=== PATIENT | female | born 1985 | race Two or more races ===

== ENCOUNTER 2020-06-06 16:49 | Emergency (ER) | payer OTHER ==
--- NOTE | 2020-06-06 18:02 | ER Document Report ---
ED ENT - General Chief Complaint: Sore Throat Stated Complaint: SORE THROAT/CHILLS/HEADACHE/NAUSEA Time Seen by Provider: 06/06/20 17:45 Mode of Arrival: Ambulatory Information source: Patient Notes: 35-year-old female past medical history significant for autoimmune disorder and [facility]KH presents to the emergency room complaining of chills, body aches, sore throat and nasal congestion for the past 3 days. States she has not been running a fever as she has her temperature checked daily at work. States she has had loss of taste and smell for the past 2 days. She has had no recent travel no no COVID-19 exposure. 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 States she has been taking Tylenol without relief. No ill contacts. No one else at home is ill. Eating and drinking normally. Denies any chance of . Requesting COVID-19 testing TRAVEL OUTSIDE OF THE [place] IN LAST 30 DAYS: No - Related Data Home Medications: Mycophenolate Mofetil Past Medical History - General Information source: Patient - Social History Smoking Status: Current Every Day Smoker Frequency of alcohol use: Occasional Drug Abuse: None Family History: Reviewed & Not Pertinent Review of Systems - Review of Systems Constitutional: Chills EENT: Nose congestion, Throat pain Cardiovascular: No symptoms reported Respiratory: No symptoms reported Gastrointestinal: No symptoms reported Musculoskeletal: Muscle pain Skin: No symptoms reported Neurological/Psychological: No symptoms reported -: Yes All other systems reviewed and negative Physical Exam - Vital signs Vitals: Pulse Resp BP Pulse Ox 71 14 123/78 99 06/06/20 18:10 06/06/20 18:10 06/06/20 18:10 06/06/20 18:10 - General General appearance: Appears well, Alert In distress: Mild - HEENT Head: Normocephalic, Atraumatic Cornea: Normal Extraocular movements intact: Yes Ears: Normal External canal: Normal Tympanic membrane: Injected, Retracted, Other - Lateral tympanic membranes are dull and retracted with clear fluid noted. Sinus: Normal. No: Frontal, Mastoid, Maxillary, Swelling, Tenderness Nasal: Other - No nasal discharge noted. Mucous membranes: Normal Pharynx: Normal - Respiratory Respiratory status: No respiratory distress Chest status: Nontender Breath sounds: Normal Chest palpation: Normal - Cardiovascular Rhythm: Regular Heart sounds: Normal auscultation Murmur: No - Back Back: Normal, Nontender. No: CVA tenderness - Neurological Neuro grossly intact: Yes Cognition: Normal Orientation: AAOx4 Haskell Coma Scale Eye Opening: Spontaneous Le Coma Scale Verbal: Oriented Haskell Coma Scale Motor: Obeys Commands Haskell Coma Scale Total: 15 Speech: Normal Motor strength normal: LUE, RUE, LLE, RLE Sensory: Normal - Skin Skin Temperature: Warm Skin Moisture: Dry Skin Color: Normal Course - Re-evaluation Re-evalutation: 06/06/20 18:18 Patient is afebrile, nontoxic-appearing, reviewed diagnosis of URI with patient. Discussed loss of taste and smell to be secondary to her sinus congestion however she has risk factors for COVID-19 the past we will swab her without her test results could take 6 to 8 days to come back. Patient was counseled on the importance of self quarantining until she gets her test results back. Can use [id number] DayQuil, NyQuil, Sudafed. Patient was given strict return to the emergency room guidelines. Return for any new or worsening symptoms. All questions were answered. Patient verbalized understanding and agrees with plan of care. - Vital Signs Vital signs: Temp Pulse Resp BP Pulse Ox 98.5 F 71 14 123/78 99 06/06/20 18:28 06/06/20 18:10 06/06/20 18:10 06/06/20 18:10 06/06/20 18:10 Discharge - Discharge Clinical Impression: Viral URI, Person under investigation for COVID-19 Condition: Stable Disposition: HOME, SELF-CARE Instructions: Upper Respiratory Illness ([facility]), Viral Syndrome ([facility]) Additional Instructions: Your symptoms are most likely due to a viral infection it should resolve over the next 7-14 days. You should take [id number] guanfacine per bottle instructions to help thin the mucus. For nasal congestion: I would recommend that you get byio-fge-slpoeiz oxymetazoline also known is afrin. Use only per bottle instructions and be sure to never use this for more than 3 days if you can develop severe rebound congestion. You may also use tylenol or ibuprofen as needed for aches and thorat discomfort. Please be sure to drink plenty of fluids and get rest. Return to the emergency department he began having difficulty breathing, chest pain, persistent vomiting, or any other symptoms that are co ncerning to you. You have been tested for COVID-19, is mandatory that you self quarantine for the next 14 days or until you get your test results back. Return to the emergency room for any new or worsening symptoms.
[2020-06-06 19:19] VITALS: BP 120/67
== END 2020-06-06 19:20 | disposition home or self-care (01) ==
LOC: ER 16:49
DX: J06.9 Acute upper respiratory infection, unspecified (principal); B97.89 Other viral agents as the cause of diseases classified elsewhere; J02.9 Acute pharyngitis, unspecified; R68.83 Chills (without fever); R09.81 Nasal congestion; R43.8 Other disturbances of smell and taste; F17.200 Nicotine dependence, unspecified, uncomplicated; M79.10 Myalgia, unspecified site; Z20.828 Contact with and (suspected) exposure to other viral communicable diseases
CPT/HCPCS: 99283; 87635; C9803